=== PATIENT | female | born 1950 | race Caucasian/White ===

== ENCOUNTER 2016-10-19 05:30 | Inpatient (IN) | payer OTHER ==
[~2016-10-19] VITALS: Ht 156.2 cm; Wt 56.3 kg
[~2016-10-19 05:30] MED LIST: CLIMARA1 EACH TD; LEVOTHYROXINE100 MCG PO; TYLENOL EXTRA500 MG PO
[2016-10-19 06:07] VITALS: BP 104/58
[2016-10-19 10:26] VITALS: BP 134/62
[2016-10-19 12:15] VITALS: BP 110/54
[2016-10-19 20:02] VITALS: BP 97/48
[2016-10-19 22:39] VITALS: BP 93/51
[2016-10-20 01:06] VITALS: BP 91/50
[2016-10-20 04:30] VITALS: BP 87/49
[2016-10-20 07:03] LABS: ANION GAP 5 MEQ/L (2-14); CHLORIDE 104 MEQ/L (99-109); GFR ESTIMATE (CALCULATED) > 59 mL/min/; GLUCOSE 94 mg/dL (70-99); POTASSIUM 4.5 MEQ/L (3.7-5.4); SAMPLE HEMOLYSIS CHECK 0; SAMPLE ICTERIC CHECK 0; SAMPLE LIPEMIA CHECK 0; SODIUM 138 MEQ/L (136-147); UREA NITROGEN (BUN) 12 mg/dL (9-23)
[2016-10-20 08:09] VITALS: BP 87/52
[2016-10-20 12:00] VITALS: BP 99/52
[2016-10-20 15:41] VITALS: BP 97/53
[2016-10-20 19:50] VITALS: BP 108/54
[2016-10-21 00:30] VITALS: BP 108/55
[2016-10-21 04:25] VITALS: BP 111/52
[2016-10-21 08:09] VITALS: BP 105/52
[2016-10-21 11:44] VITALS: BP 105/52
[2016-10-21] MEDS ORDERED: SENNA PLUS TAB1 EACH PO (13:34)
[2016-10-21] MEDS ORDERED: LIDOCAINE700 MG TD (13:35)
[2016-10-21] MEDS ORDERED: ELIQUIS2.5 MG PO (13:35)
[2016-10-21] MEDS ORDERED: ENDOCET 5-3251 EACH PO (13:35)
[2016-10-21] MEDS ORDERED: METHOCARBAMOL500 MG PO (13:35)
== END 2016-10-21 14:35 | DRG 470 ==
LOC: 2SOUTH 05:30 → 3WEST 10:05 → 2SOUTH 13:57 → 3WEST 10-21 14:35
PROVIDERS: Orthopaedic Surgery
PROC: 0SRC0J9 Replacement of Right Knee Joint with Synthetic Substitute, Cemented, Open Approach (ICD-10-PCS; principal; 2016-10-19)
DX: M17.11 Unilateral primary osteoarthritis, right knee (principal); I44.0 Atrioventricular block, first degree; R00.1 Bradycardia, unspecified; E03.9 Hypothyroidism, unspecified; Z82.62 Family history of osteoporosis
CPT/HCPCS: 80048; C1713; J0131; J0690; J1100; J1170; J1885; J2405; J2765; J3010; J7050; J7120; L1820; S0020